=== PATIENT | male | born 1940 | race Caucasian/White ===

== ENCOUNTER 2016-08-14 18:37 | Emergency (ER) | payer OTHER, MEDICARE ==
[2016-08-14] MEDS ORDERED: ACETAMINOPHEN 325 MG TABLET PO ONE (18:57)
[2016-08-14] MEDS ORDERED: NORMAL SALINE 1000 ML 1,000 ML IV ONE (18:57)
--- NOTE | 2016-08-14 19:02 | ER Document Report ---
ED Medical Screen (RME) - General Chief Complaint: Fever Stated Complaint: FEVER,HIGH BLOOD PRESSURE Notes: I briefly seen and evaluated this patient in my role as physician in triage. I have initiated orders based on this initial evaluation. Please see my colleague' s documentation for complete history, physical, management, diagnosis, and ultimate disposition. My brief evaluation: Patient presents with one week of generalized malaise. His found him slumped at the table this evening with his head down. She says that he won't lift his head up and he doesn't feel well. She said that he felt very hot. The patient is not able to specify why he doesn't feel well. 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 This patient denies a cough. He denies nausea vomiting or diarrhea. He denies chest pain or difficulty breathing. On exam, the patient is slouched over with his head down. He answers questions in short sentences. He appears unwell. He is ashen color. His vital signs are unremarkable exception of possibly a low grade fever. Mucous membranes are dry. Chest sounds are clear and equal bilaterally. Heart rate and rhythm are normal with no murmurs. Medical decision making: This patient appears unwell and clinically dehydrated. We will initiate workup for suspected sepsis. TRAVEL OUTSIDE OF THE [place] IN LAST 30 DAYS: No - Related Data Allergies/Adverse Reactions: No Known Allergies Allergy (Unverified 08/14/16 18:49) Past Medical History Renal/ Medical History: Denies: Hx Peritoneal Dialysis Physical Exam - Vital signs Vitals: Temp Pulse Resp BP Pulse Ox 99.4 F 87 18 144/79 H 98 08/14/16 18:42 08/14/16 18:42 08/14/16 18:42 08/14/16 18:42 08/14/16 18:42 Course - Vital Signs Vital signs: Temp Pulse Resp BP Pulse Ox 99.4 F 87 18 144/79 H 98 08/14/16 18:42 08/14/16 18:42 08/14/16 18:42 08/14/16 18:42 08/14/16 18:42
--- NOTE | 2016-08-14 19:39 | ER Document Report ---
ED Fever - General Chief Complaint: Fever Stated Complaint: FEVER,HIGH BLOOD PRESSURE Mode of Arrival: Ambulatory Information source: Patient TRAVEL OUTSIDE OF THE [place] IN LAST 30 DAYS: No - HPI Onset: Other - 3-4 days Associated symptoms: Fever Notes: Patient arrives with his at the bedside with complaints of fever. He was seen in urgent care earlier today and sent to the emergency department for evaluation. The patient states that for the last 3-4 days he's had intermittent fever. Today he just wasn't feeling well overall and went to urgent care and was deferred to the emergency department due to his fever. His reports he had some diarrhea last week, but denies any diarrhea since. He denies any nausea or vomiting. He denies any dysuria. No cough. No chest pain or shortness of breath. No rash. No headache, blurred vision, numbness tingling or weakness. Patient is feeling better at this point after antipyretics. - Related Data Allergies/Adverse Reactions: No Known Allergies Allergy (Unverified 08/14/16 18:49) Past Medical History - Social History Smoking Status: Unknown if Ever Smoked Family History: Reviewed & Not Pertinent Patient has suicidal ideation: No Patient has homicidal ideation: No Renal/ Medical History: Denies: Hx Peritoneal Dialysis Review of Systems - Review of Systems -: Yes All other systems reviewed and negative Physical Exam - Vital signs Vitals: Temp Pulse Resp BP Pulse Ox 99.4 F 87 18 144/79 H 98 08/14/16 18:42 08/14/16 18:42 08/14/16 18:42 08/14/16 18:42 08/14/16 18:42 - General General appearance: Appears well, Alert In distress: None - HEENT Head: Normocephalic, Atraumatic Eyes: Normal Conjunctiva: Normal Extraocular movements intact: Yes Pupils: PERRL Ears: Normal Mouth/Lips: Normal Mucous membranes: Dry - Mild Neck: Normal. No: Meningismus - Respiratory Respiratory status: No respiratory distress Breath sounds: Normal - Cardiovascular Rhythm: Regular Heart sounds: Normal auscultation Murmur: No - Abdominal Inspection: Normal Distension: No distension Bowel sounds: Normal Tenderness: Nontender Organomegaly: No organomegaly, Other - The palpable mass, no pulsatile mass. - Back Back: Normal, Nontender. No: CVA tenderness - Extremities General upper extremity: Normal inspection, Nontender, Normal color, Normal ROM , Normal temperature General lower extremity: Normal inspection, Nontender, Normal color, Normal ROM , Normal temperature, Normal weight bearing. No: Clare's sign - Neurological Neuro grossly intact: Yes Cognition: Normal Orientation: AAOx4 [place] Coma Scale Eye Opening: Spontaneous [place] Coma Scale Verbal: Oriented [place] Coma Scale Motor: Obeys Commands Matt Coma Scale Total: 15 Speech: Normal Motor strength normal: LUE, RUE, LLE, RLE Sensory: Normal - Psychological Associated symptoms: Normal affect, Normal mood - Skin Skin Temperature: Warm Skin Moisture: Dry Skin Color: Normal Course - Re-evaluation Re-evalutation: 08/14/16 21:42 Patient remains stable at this time. Blood work is unremarkable. Blood gas and lactate are normal, white blood cell count is normal, vital signs are stable , there is no signs of sepsis. Blood culture and urine culture are pending. Urinalysis shows signs of urinary tract infection, this certainly would explain his fever and not feeling well. The patient will be given a dose of antibiotics here in the emergency department. The patient was offered admission to the hospital, he declines at this time. He states that he would like to go home. I'll discharge the patient home on Cipro, with instructions to follow up with his primary care doctor at the next available appointment. He should follow-up sooner if he develops any worsening symptoms or any further concerns. The patient is noted to have elevated blood pressure during today's emergency department visit. The patient was informed of this finding. The patient was instructed that this may be related to pre-hypertension and requires further evaluation with a primary care provider. The patient has no hypertensive symptoms at this time. The patient's emergency department workup and current diagnosis were explained to the patient and or family. Follow-up instructions were provided. Medications if prescribed were discussed. Instructions for when to return to the emergency department including specific worrisome symptoms were discussed with the patient and/or family. - Vital Signs Vital signs: Temp Pulse Resp BP Pulse Ox 99.4 F 87 18 130/79 H 95 08/14/16 18:42 08/14/16 18:42 08/14/16 18:42 08/14/16 21:31 08/14/16 21:31 - Laboratory Result Diagrams: 08/14/16 20:23 08/14/16 20:23 Laboratory results interpreted by me: 08/14/16 08/14/16 08/14/16 19:56 20:23 20:23 RBC 3.86 L Hgb 12.0 L Hct 35.7 L Seg Neuts % (Manual) 90 H Lymphocytes % (Manual) 5 L Abs Neuts (Manual) 8.8 H PT 16.9 H VBG pH VBG pCO2 Chloride BUN Glucose POC Glucose 156 H Direct Bilirubin Total Protein Albumin Urine Protein Urine Blood Urine Bilirubin Urine Urobilinogen Ur Leukocyte Esterase 08/14/16 08/14/16 08/14/16 20:23 20:23 20:33 RBC Hgb Hct Seg Neuts % (Manual) Lymphocytes % (Manual) Abs Neuts (Manual) PT VBG pH 7.47 H VBG pCO2 31.7 L Chloride 109 H BUN 24 H Glucose 156 H POC Glucose Direct Bilirubin 0.5 H Total Protein 6.2 L Albumin 3.2 L Urine Protein 100 H Urine Blood SMALL H Urine Bilirubin SMALL H Urine Urobilinogen 4.0 H Ur Leukocyte Esterase LARGE H - Diagnostic Test Radiology reviewed: Image reviewed, Reports reviewed - Chest x-ray clear - EKG Interpretation by Me EKG shows normal: Sinus rhythm Rate: Normal Rhythm: NSR Heart block present: 1st Degree When compared to previous EKG there are: Previous EKG unavailable Additional EKG results interpreted by me: 08/14/16 19:40 T-wave inversion in lead 3, nonspecific. No ST elevation or depression. Discharge - Discharge Clinical Impression: UTI (urinary tract infection) Condition: Stable Disposition: HOME, SELF-CARE Instructions: Urinary Tract Infection ([facility]) Additional Instructions: Take medications as prescribed. Drink lots of fluids. Follow-up with your doctor in the next 2-3 days for reevaluation. Follow-up sooner for flank pain, abdominal pain, persistent vomiting, feeling worse in anyway, or any further concerns. Your blood pressure was elevated during today's visit. Have this rechecked with your doctor. Prescriptions: Ciprofloxacin HCl [Cipro 500 mg Tablet] 500 mg PO BID #20 tablet Forms: Elevated Blood Pressure
[2016-08-14 20:38] LABS: VENOUS BLOOD BASE EXCESS -0.6 mmol/L; VENOUS BLOOD HCO3 22.4 mmol/L (20-32); VENOUS BLOOD PCO2 31.7 mmHg (35-63); VENOUS BLOOD PH 7.47 (7.30-7.42)
[2016-08-14 20:46] LABS: PROTHROMBIN TIME 16.9 SEC (11.4-15.4)
[2016-08-14 20:52] LABS: ALANINE AMINOTRANSFERASE 33 U/L (21-72); ALBUMIN 3.2 g/dL (3.5-5.0); ALKALINE PHOSPHATASE 56 U/L (38-126); ANION GAP 11 (5-19); ASPARTATE AMINO TRANSFERASE 17 U/L (17-59); BILIRUBIN,DIRECT 0.5 mg/dL (0.0-0.4); BILIRUBIN,TOTAL 1.2 mg/dL (0.2-1.3); BLOOD UREA NITROGEN 24 mg/dL (7-20); CALCIUM 8.5 mg/dL (8.4-10.2); CARBON DIOXIDE 23 mmol/L (22-30); CHLORIDE 109 mmol/L (98-107); CREATININE RESULT 1.19 mg/dL (0.52-1.25); GLUCOSE 156 mg/dL (75-110); POTASSIUM 4.2 mmol/L (3.6-5.0); SODIUM 142.8 mmol/L (137-145); TOTAL PROTEIN 6.2 g/dL (6.3-8.2)
[2016-08-14 20:55] LABS: HEMATOCRIT 35.7 % (37.9-51.0); HGB HCT DIFFERENCE 0.3; MEAN CORPUSCULAR HEMOGLOBIN 31.2 pg (27.0-33.4); MEAN CORPUSCULAR HGB CONC 33.7 g/dL (32.0-36.0); MEAN CORPUSCULAR VOLUME 93 fl (80-97); RED BLOOD COUNT 3.86 10^6/uL (4.35-5.55); RED CELL DISTRIBUTION WIDTH 12.9 % (11.5-14.0); WHITE BLOOD COUNT 9.8 10^3/uL (4.0-10.5)
[2016-08-14 21:20] LABS: BASOPHILS % (MANUAL) 0 % (0-2); EOSINOPHILS % (MANUAL) 0 % (0-6); LYMPHOCYTES % (MANUAL) 5 % (13-45); TOTAL CELLS COUNTED 100
[2016-08-14 21:21] LABS: RBC MORPHOLOGY COMMENT NORMO-CYTIC/CHROMIC
[2016-08-14 21:28] LABS: APPEARANCE,URINE CLOUDY; BILIRUBIN,URINE SMALL (NEGATIVE); GLUCOSE, URINE NEGATIVE (NEGATIVE); KETONES,URINE NEGATIVE (NEGATIVE); LEUKOCYTE ESTERASE,URINE LARGE (NEGATIVE); NITRITE,URINE NEGATIVE (NEGATIVE); PROTEIN,URINE 100 mg/dL (NEGATIVE); URINE SPECIFIC GRAVITY 1.027
[2016-08-14] MEDS ORDERED: CIPROFLOXACIN 400 MG/D5W RTU 200 ML IV SCH (22:00)
[2016-08-14 23:21] VITALS: BP 129/77
--- NOTE | 2016-08-15 00:07 | EKG REPORT ---
SEVERITY:- ABNORMAL ECG - SINUS RHYTHM FIRST DEGREE AV BLOCK BORDERLINE T ABNORMALITIES, INFERIOR LEADS : Confirmed by: Darron Hebert MD 15-Aug-2016 00:06:38
== END 2016-08-14 23:21 | disposition home or self-care (01) ==
LOC: ER 18:37
DX: N39.0 Urinary tract infection, site not specified (principal); R50.9 Fever, unspecified
CPT/HCPCS: 93005; 99284; 96361; 96365; 36415; 87040; 87086; 82962; 85025; 85610; 87077; 87088; 80053; 81001; 87186; 82803; 83605; 71010; 93010; J7030; J0744

== ENCOUNTER 2017-01-31 06:21 | Emergency (ER) | payer OTHER, MEDICARE ==
[2017-01-31 06:29] VITALS: BP 152/88
[2017-01-31] MEDS ORDERED: DEXAMETHASONE SOD PHOS INJ 10 MG/1 ML VIAL IM ONE (06:36)
--- NOTE | 2017-01-31 06:38 | ER Document Report ---
ED General - General Chief Complaint: Leg Pain Stated Complaint: PAIN IN LEG Time Seen by Provider: 01/31/17 06:29 Mode of Arrival: Ambulatory Information source: Patient Notes: 76-year-old male history of sciatica left-sided presents with complaints of pain down the left leg. Patient denies any fevers or chills denies any nausea vomiting or diarrhea. Patient denies any cauda equina concerns. Patient presents with paperwork from 1976 when his sciatic pain first started. He notes that normally the [facility] gives him injections and the last 2 years his last injection was 14 months ago. TRAVEL OUTSIDE OF THE [place] IN LAST 30 DAYS: No - HPI Onset: Other Onset/Duration: Persistent Quality of pain: Achy Severity: Mild Pain Level: 1 Associated symptoms: Body/muscle aches Exacerbated by: Movement, Walking Relieved by: Denies Similar symptoms previously: Yes Recently seen / treated by doctor: Yes - Related Data Allergies/Adverse Reactions: No Known Allergies Allergy (Unverified 08/14/16 18:49) Past Medical History - Social History Smoking Status: Never Smoker Cigarette use (# per day): No Chew tobacco use (# tins/day): No Smoking Education Provided: No Family History: Reviewed & Not Pertinent Patient has suicidal ideation: No Patient has homicidal ideation: No Renal/ Medical History: Denies: Hx Peritoneal Dialysis Review of Systems - Review of Systems Notes: REVIEW OF SYSTEMS: CONSTITUTIONAL : Denies fever, chills, or sweats. Denies recent illness. EENT: Denies eye, ear, throat, or mouth pain or symptoms. Denies nasal or sinus congestion or discharge. Denies throat, tongue, or mouth swelling or difficulty swallowing. CARDIOVASCULAR: Denies chest pain. Denies palpitations or racing or irregular heart beat. Denies ankle edema. RESPIRATORY: Denies cough, cold, or chest congestion. Denies shortness of breath, difficulty breathing, or wheezing. GASTROINTESTINAL: Denies abdominal pain or distention. Denies nausea, vomiting , or diarrhea. Denies blood in vomitus, stools, or per rectum. Denies black, tarry stools. Denies constipation. GENITOURINARY: Denies difficulty urinating, painful urination, burning, frequency, blood in urine, or discharge. MUSCULOSKELETAL: left leg pain SKIN: Denies rash, lesions or sores. HEMATOLOGIC : Denies easy bruising or bleeding. LYMPHATIC: Denies swollen, enlarged glands. NEUROLOGICAL: Denies confusion or altered mental status. Denies passing out or loss of consciousness. Denies dizziness or lightheadedness. Denies headache. Denies weakness or paralysis or loss of use of either side. Denies problems with gait or speech. Denies sensory loss, numbness, or tingling. Denies seizures. PSYCHIATRIC: Denies anxiety or stress. Denies depression, suicidal ideation, or homicidal ideation. ALL OTHER SYSTEMS REVIEWED AND NEGATIVE. Dictation was performed using [employer] voice recognition software PHYSICAL EXAMINATION: GENERAL: Well-appearing, well-nourished and in no acute distress. HEAD: Atraumatic, normocephalic. EYES: Pupils equal round and reactive to light, extraocular movements intact, sclera anicteric, conjunctiva are normal. ENT: Nares patent, oropharynx clear without exudates. Moist mucous membranes. NECK: Normal range of motion, supple without lymphadenopathy LUNGS: Breath sounds clear to auscultation bilaterally and equal. No wheezes rales or rhonchi. HEART: Regular rate and rhythm without murmurs ABDOMEN: Soft, nontender, nondistended abdomen. No guarding, no rebound. No masses appreciated. Musculoskeletal: Normal range of motion, no pitting or edema. No cyanosis. pt ambulating, noted to have tenderness in the sciatic nerve region left buttocks NEUROLOGICAL: Cranial nerves grossly intact. Normal speech, normal gait. Normal sensory, motor exams PSYCH: Normal mood, normal affect. SKIN: Warm, Dry, normal turgor, no rashes or lesions noted. Physical Exam - Vital signs Vitals: Temp Pulse Resp BP Pulse Ox 97.4 F 70 20 152/88 H 96 01/31/17 06:26 01/31/17 06:26 01/31/17 06:26 01/31/17 06:26 01/31/17 06:26 Course - Re-evaluation Re-evalutation: 01/31/17 06:41 At patient's request Decadron will be given, he states he will follow-up with his primary care physician at [facility]. Patient is taking tramadol for pain at home has no cauda equina red flag concerns will be discharged at this time After performing a Medical Screening Examination, I estimate there is LOW risk for EXPANDING OR RUPTURED ABDOMINAL AORTIC ANEURYSM, CAUDA EQUINA SYNDROME, EPIDURAL MASS LESION, or HERNIATED DISK CAUSING SEVERE SPINAL STENOSIS, thus I consider the discharge disposition reasonable. I have reevaluated this patient multiple times and no significant life threatening changes are noted. The patient and I have discussed the diagnosis and risks, and we agree with discharging home and close follow-up. We also discussed returning to the Emergency Department immediately if new or worsening symptoms occur with the understanding that symptoms and presentations can change. We have discussed the symptoms which are most concerning (e.g., saddle anesthesia, urinary or bowel incontinence or retention, changing or worsening pain) that necessitate immediate return. - Vital Signs Vital signs: Temp Pulse Resp BP Pulse Ox 97.4 F 70 20 152/88 H 96 01/31/17 06:26 01/31/17 06:26 01/31/17 06:26 01/31/17 06:26 01/31/17 06:26 Discharge - Discharge Clinical Impression: Sciatica of left side Leg pain Qualifiers: Laterality: left Qualified Code(s): M79.605 - Pain in left leg Condition: Stable Disposition: HOME, SELF-CARE Instructions: Sciatica ([facility]) Additional Instructions: [facility] or return immediately if there are any other concerns
== END 2017-01-31 06:50 | disposition home or self-care (01) ==
LOC: ER 06:21
DX: M54.32 Sciatica, left side (principal); M79.605 Pain in left leg; M79.1 Myalgia
CPT/HCPCS: 99283; 96372; J1100